=== PATIENT | female | born 1960 | race Caucasian/White ===

== ENCOUNTER 2023-02-17 11:27 | Emergency (ER) | payer OTHER ==
[2023-02-17 11:38] VITALS: TEMP 98.2; BMI 26.6
[2023-02-17] MEDS ORDERED: ALPRAZolam 0.25 MG TABLET PO ONE (12:52)
[2023-02-17] MEDS ORDERED: ALPRAZolam 0.25 MG TABLET ONE (13:11)
[2023-02-17 14:57] VITALS: BP 151/68; PULSE 100; RESP 18
== END 2023-02-17 15:09 | disposition home or self-care (01) ==
LOC: JERFT 11:27
DX: F41.9 Anxiety disorder, unspecified (principal)
CPT/HCPCS: 99283-25

== ENCOUNTER 2023-02-24 12:57 | Emergency (ER) | payer OTHER ==
[2023-02-24 13:27] VITALS: BP 158/69; PULSE 86; RESP 18; TEMP 98.5; BMI 27.4
[2023-02-24] MEDS ORDERED: ALPRAZolam 0.25 MG TABLET PO ONE (15:27)
[2023-02-24] MEDS ORDERED: ALPRAZolam 0.25 MG TABLET ONE (15:29)
== END 2023-02-24 16:38 | disposition home or self-care (01) ==
LOC: JER 12:57 → JERFT 12:57
DX: F41.9 Anxiety disorder, unspecified (principal)
CPT/HCPCS: 99283-25